=== PATIENT | female | born 1960 | race Native Hawaiian/Other Pacific Islander ===

== ENCOUNTER 2022-03-02 09:21 | Outpatient (CLI) | payer OTHER | END 2022-03-02 18:59 | disposition home or self-care (01) | LOC: MAMMO 09:21 | PROVIDERS: ATTEND Internal Medicine | DX: Z12.31 Encounter for screening mammogram for malignant neoplasm of breast (principal) ==

== ENCOUNTER 2022-03-21 14:21 | Emergency (ER) | payer OTHER ==
[~2022-03-21] VITALS: Ht 157.5 cm; Wt 78.9 kg
[2022-03-21 14:25] VITALS: TEMP 96.8
[2022-03-21 14:40] LABS: PLATELET COUNT 249 K/uL (152-353)
[2022-03-21 14:49] LABS: POTASSIUM 3.9 mmol/L (3.6-5.2)
[2022-03-21 15:25] VITALS: BP 118/76
== END 2022-03-21 15:28 | disposition home or self-care (01) ==
LOC: ED 14:21
PROVIDERS: Emergency Medicine
DX: J32.8 Other chronic sinusitis (principal); R51.9 Headache, unspecified
CPT/HCPCS: 80048; 85027; 96372; 99283; J0696; J1100

== ENCOUNTER 2023-03-19 11:55 | Outpatient (CLI) | payer OTHER | END 2023-03-19 20:51 | disposition home or self-care (01) | LOC: MAMMO 11:55 | PROVIDERS: ATTEND Nurse Practitioner Family | DX: Z12.31 Encounter for screening mammogram for malignant neoplasm of breast (principal) ==

== ENCOUNTER 2023-04-07 19:12 | Emergency (ER) | payer OTHER ==
[~2023-04-07] VITALS: Ht 157.5 cm; Wt 54.4 kg
[2023-04-07 21:54] VITALS: BP 156/70; TEMP 97.3
== END 2023-04-07 21:54 | disposition home or self-care (01) ==
LOC: ED 19:12
DX: S40.862A Insect bite (nonvenomous) of left upper arm, initial encounter (principal); W57.XXXA Bitten or stung by nonvenomous insect and other nonvenomous arthropods, initial encounter
CPT/HCPCS: 96372; 99283; J1200; J2930

== ENCOUNTER 2023-06-08 10:48 | Observation (INO) | payer OTHER ==
[~2023-06-08] VITALS: Ht 157.5 cm; Wt 76.9 kg
[2023-06-08] VITALS (7 sets, daily range): BP systolic 101–142; BP diastolic 55–79; TEMP 97.4–98.1; Ht 157.5 cm; Wt 76.9 kg
[~2023-06-08 10:48] MED LIST: AMOX PO; K CLAV PO; MEDROL DOSEPAK4 MG PO
[2023-06-08 12:13] LABS: PLATELET COUNT 268 K/uL (152-353)
[2023-06-08 12:16] LABS: POTASSIUM 3.9 mmol/L (3.6-5.2)
[2023-06-08] MEDS ORDERED: GABA300C2 PO (18:35)
[2023-06-08] MEDS ORDERED: PANTOPRAZOLE 40MG TA PO (18:35)
[2023-06-08] MEDS ORDERED: ONDANSETRON ODT PO (18:36)
[2023-06-08] MEDS ORDERED: VITAMIN C PO (18:36)
[2023-06-08] MEDS ORDERED: VITAMIN D PO (18:37)
[2023-06-08] MEDS ORDERED: CALCIUM PO (18:37)
[2023-06-09] VITALS: BP 99/44; TEMP 98.1
[2023-06-09 03:50] VITALS: BP 92/52; TEMP 98.2
[2023-06-09 07:54] VITALS: BP 113/58; TEMP 98.4
[2023-06-09 08:47] LABS: PLATELET COUNT 257 K/uL (152-353)
[2023-06-09 08:52] LABS: POTASSIUM 3.8 mmol/L (3.6-5.2)
[2023-06-09 09:55] LABS: PARTIAL THROMBOPLASTIN TIME < 20.0 SECONDS (23.9-36.7)
[2023-06-09 11:51] VITALS: BP 129/71; TEMP 97.9
[2023-06-09 16:00] VITALS: BP 114/62; TEMP 98
== END 2023-06-09 16:30 | disposition home or self-care (01) ==
LOC: ED 10:48 → MED/SURG 13:26
PROVIDERS: Internal Medicine Endocrinology, Diabetes & Metabolism; ADMIT Family Medicine; ATTEND Internal Medicine
DX: F41.0 Panic disorder [episodic paroxysmal anxiety] (principal); F41.8 Other specified anxiety disorders; R19.7 Diarrhea, unspecified; K21.9 Gastro-esophageal reflux disease without esophagitis; G62.89 Other specified polyneuropathies; R09.02 Hypoxemia
CPT/HCPCS: 36415; 80048; 80053; 81002; 82550; 84484; 85027; 85610; 85730; 87015; 87040; 87045; 87077; 87324; 87449; 87502; 87635; 87899; 93005; 94664; 96360; 96361; 96372; 96374; 96375; 99221; 99284; G0378; J0132; J1200; J1650; J2060; U0003